=== PATIENT | male | born 1985 | race Caucasian/White ===

== ENCOUNTER 2016-11-10 00:32 | Observation (INO) | payer OTHER, SELFPAY ==
[2016-11-10] MEDS ORDERED: Narcan 0.4 MG/ML IV ONE (00:34)
--- NOTE | 2016-11-10 00:34 | ERPHSYRPT ---
- History of Present Illness Time Seen by Provider: 11/10/16 00:33 Source: EMS Exam Limitations: clinical condition Physician History: REPORTEDLY PT HAS DONE BATH SALTS TONIGHT AND WAS FOUND MINIMALLY RESPONSIVE AT A RESIDENCE THAT WAS NOT HIS. PT WAS GIVEN NARCAN WITH INCREASED RESPONSIVENESS AND BROUGHT TO [facility] VIA AMBULANCE. PT DENIES CHEST PAIN, SHORTNESS OF AIR, ABDOMINAL PAIN. Allergies/Adverse Reactions: No Known Drug Allergies Allergy (Unverified 11/10/16 02:13) unable to verify Home Medications: Unobtainable [Unobtainable] 11/10/16 [History] Hx Tetanus, Diphtheria Vaccination/Date Given: Yes Hx Influenza Vaccination/Date Given: No Hx Pneumococcal Vaccination/Date Given: No - Review of Systems Respiratory: No Dyspnea Cardiac: No Chest Pain Abdominal/Gastrointestinal: No Abdominal Pain Neurological: Other (AMS TONIGHT) All Other Systems: Reviewed and Negative - Past Medical History Pertinent Past Medical History: Yes Neurological History: No Pertinent History ENT History: No Pertinent History Cardiac History: No Pertinent History Respiratory History: No Pertinent History Endocrine Medical History: No Pertinent History Musculoskeletal History: No Pertinent History GI Medical History: Hepatitis History: No Pertinent History Psycho-Social History: No Pertinent History Male Reproductive Disorders: No Pertinent History Other Medical History: pt states he was told he had hepatitis c but it is not active - Past Surgical History Past Surgical History: Yes Neuro Surgical History: No Pertinent History Cardiac: No Pertinent History Respiratory: No Pertinent History Gastrointestinal: Appendectomy Genitourinary: No Pertinent History Musculoskeletal: Orthopedic Surgery Male Surgical History: No Pertinent History Other Surgical History: ABSCESS I AND D on MRSA area of R arm, orthopedic surg to L arm - Social History Smoking Status: Current every day smoker Exposure to second hand smoke: No Drug Use: marijuana, narcotics, other Patient Lives Alone: No - Nursing Vital Signs Nursing Vital Signs: Initial Vital Signs O2 Sat by Pulse Oximetry 96 11/10/16 01:22 Pain Scale Pain Intensity 0 - Physical Exam General Appearance: lethargy (BUT WILL ANSWER QUESTIONS) Eye Exam: PERRL/EOMI Ears, Nose, Throat Exam: dry mucous membranes Neck Exam: normal inspection Respiratory Exam: lungs clear Cardiovascular Exam: normal heart sounds Gastrointestinal/Abdomen Exam: soft, normal bowel sounds Back Exam: normal inspection Extremity Exam: No pedal edema Neurologic Exam: slurred speech, No normal mood/affect (LETHARGIC) Skin Exam: warm, dry, rash (2 mm DIAMETER PAPULES OVER BUTTOCKS), abrasion ( ABRASION OF RIGHT KNEE) SpO2 Interpretation: normal SpO2: 95 Oxygen Delivery: Room Air - Course Nursing assessment & vital signs reviewed: Yes - Radiology Exams Chest X-ray Interpretation: Interpreted by me, No Pneumonia - CT Exams Head CT Interpretation: Tele-radiologist Report (MOTION AND ARTIFACT DEGRADE THE STUDY. VISUALIZED, NO ACUTE INTRACRANIAL PROCESS SEEN.) Ordered Tests: Active Orders 24 hr Category Date Time Status Accucheck STAT Care 11/10/16 00:34 Active Cath for Specimen-Straight STAT Care 11/10/16 00:37 Active EKG-ER Only STAT Care 11/10/16 00:34 Active IV Insertion STAT Care 11/10/16 00:34 Active Pulse Oximetry (ED) STAT Care 11/10/16 00:34 Active CHEST 1 VIEW (PORTABLE) Stat Exams 11/10/16 00:36 Taken HEAD WITHOUT CONTRAST [CT] Stat Exams 11/10/16 00:38 Taken ACETAMINOPHEN Stat Lab 11/10/16 00:59 Completed AMYLASE Stat Lab 11/10/16 00:59 Completed ARTERIAL BLOOD GASES Stat Lab 11/10/16 00:45 Results BLOOD CULTURE Stat Lab 11/10/16 00:50 Ordered CBC W DIFF Stat Lab 11/10/16 00:59 Completed CMP Stat Lab 11/10/16 00:59 Completed CULTURE,URINE Stat Lab 11/10/16 00:59 Received ETHYL ALCOHOL Stat Lab 11/10/16 00:59 Completed LIPASE Stat Lab 11/10/16 00:59 Completed Lactic Acid Stat Lab 11/10/16 00:45 Results MAGNESIUM Stat Lab 11/10/16 00:59 Completed Manual Differential NC Stat Lab 11/10/16 00:59 Completed SALICYLATE Stat Lab 11/10/16 00:59 Completed TROPONIN Q3H Lab 11/10/16 00:59 Completed TROPONIN Q3H Lab 11/10/16 03:45 Ordered TROPONIN Q3H Lab 11/10/16 06:45 Ordered TROPONIN Q3H Lab 11/10/16 09:45 Ordered TROPONIN Q3H Lab 11/10/16 12:45 Ordered UA W/ MICROSCOPIC Stat Lab 11/10/16 00:59 Completed Urine Triage Profile Stat Lab 11/10/16 00:59 Completed Medication Summary Generic Name Dose Route Start Last Admin Trade Name Freq PRN Reason Stop Dose Admin Sodium Chloride 1,000 mls @ 100 mls/hr 11/10/16 00:45 11/10/16 01:03 Sodium Chloride 0.9% 1000 Ml IV 12/10/16 00:44 100 mls/hr .Q10H GREGORIO Administration Potassium Chloride 20 meq in 100 mls @ 50 mls/hr 11/10/16 01:46 11/10/16 02: 34 Potassium Chloride 20 Meq In Water 100ml IV 11/10/16 03:45 50 mls/hr STAT ONE Administration Discontinued Medications Generic Name Dose Route Start Last Admin Trade Name Humaira PRN Reason Stop Dose Admin Sodium Chloride 1,000 mls @ 999 mls/hr 11/10/16 01:12 11/10/16 02:35 Sodium Chloride 0.9% 1000 Ml IV 11/10/16 02:12 999 mls/hr .Q1H1M STA Administration Sodium Chloride 1,000 mls @ 999 mls/hr 11/10/16 01:26 Sodium Chloride 0.9% 1000 Ml IV 11/10/16 02:26 .Q1H1M STA Ceftriaxone Sodium/Dextrose 1 g in 50 mls @ 100 mls/hr 11/10/16 01:29 02:03 Rocephin 1 Gm-D5w 50 Ml Bag IV 11/10/16 01:58 100 mls/hr STAT STA Administration Ceftriaxone Sodium/Dextrose Confirm 11/10/16 02:03 Rocephin 1 Gm-D5w 50 Ml Bag Administered 11/10/16 02:04 Dose 1 g in 50 mls @ ud IV .STK-MED ONE Potassium Chloride Confirm 11/10/16 02:34 Potassium Chloride 20 Meq In Water 100ml Administered 11/10/16 02:35 Dose 100 mls @ ud IV .STK-MED ONE Naloxone HCl 0.4 mg 11/10/16 00:34 11/10/16 01:04 Narcan 0.4 Mg/Ml IV 11/10/16 00:35 0.4 mg STAT ONE Administration Naloxone HCl Confirm 11/10/16 01:02 Narcan 0.4 Mg/Ml Administered 11/10/16 01:03 Dose 0.4 mg .ROUTE .STK-MED ONE Naloxone HCl 2 mg 11/10/16 01:12 11/10/16 01:16 Narcan 1 Mg/Ml IV 11/10/16 01:13 2 mg STAT ONE Administration Naloxone HCl Confirm 11/10/16 01:16 Narcan 1 Mg/Ml Administered 11/10/16 01:17 Dose 2 mg .ROUTE .STK-MED ONE Ondansetron HCl 4 mg 11/10/16 02:31 Zofran 4 Mg/2 Ml Vial IV 11/10/16 02:32 STAT ONE Ondansetron HCl Confirm 11/10/16 02:41 Zofran 4 Mg/2 Ml Vial Administered 11/10/16 02:42 Dose 4 mg .ROUTE .STK-MED ONE Promethazine HCl 12.5 mg 11/10/16 01:39 11/10/16 01:55 Phenergan 25 Mg Inj IV 11/10/16 01:40 12.5 mg STAT ONE Administration Promethazine HCl Confirm 11/10/16 01:55 Phenergan 25 Mg Inj Administered 11/10/16 01:56 Dose 25 mg .ROUTE .STK-MED ONE Lab/Rad Data: Laboratory Result Diagrams 11/10/16 00:59 11/10/16 00:59 Laboratory Results 11/10/16 11/10/16 11/10/16 Range/Units 00:59 00:59 00:59 WBC (4.0-10.5) K/mm3 RBC (4.1-5.6) M/mm3 Hgb (12.5-18.0) gm/dl Hct (42-50) % MCV (78-100) fl MCH (26-32) pg MCHC (32-36) g/dl RDW (11.5-14.0) % Plt Count (150-450) K/mm3 MPV (6-9.5) fl Segmented Neutrophils (36.-66.) % Band Neutrophils (0.0-2.0) % Lymphocytes (Manual) (24-44) % Monocytes (Manual) (0.0-12.0) % Differential Comment Platelet Estimate (NORMAL) Puncture Site pCO2 (35-45) mmHg pO2 (75-100) mmHg Base Excess (-2.0-2.0) O2 Saturation (94-100) g/dF ABG pH (7.35-7.45) ABG HCO3 (22-28) ABG O2 Sat (Measured) (95-100) % Shane Test A-a Gradient a/A Ratio Hemoglobin Carboxyhemoglobin (0.0-6.9) % THgb Methemoglobin (1.4-1.5) % Potassium 3.4 L (3.5-5.1) Temperature C POC O2 Flow Rate % Sodium 133 L (136-145) mEq/L Chloride 100 (98-107) mEq/L Carbon Dioxide 22.8 (21-32) mEq/L Anion Gap 13.9 (5-15) MEQ/L BUN 13 (9-20) mg/dL Creatinine 1.16 (0.55-1.30) mg/dl Estimated GFR > 60 ML/MIN Glucose 96 (70-110) MG/DL Lactic Acid (0.4-2.0) Calcium 9.2 (8.5-10.1) mg/dL Magnesium 1.8 (1.8-2.4) mg/dL Total Bilirubin 0.60 (0.2-1.0) mg/dL AST 31 (15-37) U/L ALT 38 (12-78) U/L Alkaline Phosphatase 108 (46-116) U/L Troponin I < 0.017 (0.000-0.056) ng/ml Serum Total Protein 7.7 (6.4-8.2) gm/dL Albumin 3.0 L (3.4-5.0) g/dL Amylase 20 L (25-115) U/L Lipase 116 (73-393) U/L Ur Collection Type Urine Color (YELLOW) Urine Appearance (CLEAR) Urine pH (5-6) Ur Specific [place] (1.005-1.025) Urine Protein (Negative) Urine Ketones (NEGATIVE) Urine Blood (0-5) Bruce/ul Urine Nitrite (NEGATIVE) Urine Bilirubin (NEGATIVE) Urine Urobilinogen (0-1) mg/dL Ur Leukocyte Esterase (NEGATIVE) Urine Microscopic RBC (0-2) /HPF Urine Microscopic WBC (0-5) /HPF Ur Epithelial Cells (FEW) /HPF Amorphous Crystals (NEGATIVE) /HPF Urine Bacteria (NEGATIVE) /HPF Urine Mucus (NEGATIVE) /HPF Urine Glucose (NEGATIVE) mg/dL Salicylates 4.2 (2.8-20.0) mg/dl Urine Opiates Level (NEGATIVE) Ur Methadone (NEGATIVE) Acetaminophen < 2.0 L (10-30) ug/ml Urine Barbiturates (NEGATIVE) Ur Phencyclidine (PCP) (NEGATIVE) Urine Amphetamine (NEGATIVE) U Benzodiazepine Level (NEGATIVE) Urine Cocaine (NEGATIVE) Urine Marijuana (THC) (NEGATIVE) Ethyl Alcohol < 0.010 (0.00-0.01) % Specimen Received 11/10/16 11/10/16 11/10/16 Range/Units 00:59 00:59 00:59 WBC 14.3 H (4.0-10.5) K/mm3 RBC 4.56 (4.1-5.6) M/mm3 Hgb 12.0 L (12.5-18.0) gm/dl Hct 35.9 L (42-50) % MCV 78.7 (78-100) fl MCH 26.3 (26-32) pg MCHC 33.4 (32-36) g/dl RDW 15.4 H (11.5-14.0) % Plt Count 197 (150-450) K/mm3 MPV 10.3 H (6-9.5) fl Segmented Neutrophils 82 H (36.-66.) % Band Neutrophils 4 H (0.0-2.0) % Lymphocytes (Manual) 12 L (24-44) % Monocytes (Manual) 2 (0.0-12.0) % Differential Comment NORMAL Platelet Estimate NORMAL (NORMAL) Puncture Site pCO2 (35-45) mmHg pO2 (75-100) mmHg Base Excess (-2.0-2.0) O2 Saturation (94-100) g/dF ABG pH (7.35-7.45) ABG HCO3 (22-28) ABG O2 Sat (Measured) (95-100) % Shane Test A-a Gradient a/A Ratio Hemoglobin Carboxyhemoglobin (0.0-6.9) % THgb Methemoglobin (1.4-1.5) % Potassium (3.5-5.1) Temperature C POC O2 Flow Rate % Sodium (136-145) mEq/L Chloride (98-107) mEq/L Carbon Dioxide (21-32) mEq/L Anion Gap (5-15) MEQ/L BUN (9-20) mg/dL Creatinine (0.55-1.30) mg/dl Estimated GFR ML/MIN Glucose (70-110) MG/DL Lactic Acid (0.4-2.0) Calcium (8.5-10.1) mg/dL Magnesium (1.8-2.4) mg/dL Total Bilirubin (0.2-1.0) mg/dL AST (15-37) U/L ALT (12-78) U/L Alkaline Phosphatase (46-116) U/L Troponin I (0.000-0.056) ng/ml Serum Total Protein (6.4-8.2) gm/dL Albumin (3.4-5.0) g/dL Amylase (25-115) U/L Lipase (73-393) U/L Ur Collection Type CATH Urine Color DARK YELLOW (YELLOW) Urine Appearance CLOUDY (CLEAR) Urine pH 5.0 (5-6) Ur Specific [place] 1.030 (1.005-1.025) Urine Protein 30 (Negative) Urine Ketones NEGATIVE (NEGATIVE) Urine Blood 250 (0-5) Bruce/ul Urine Nitrite NEGATIVE (NEGATIVE) Urine Bilirubin NEGATIVE (NEGATIVE) Urine Urobilinogen NORMAL (0-1) mg/dL Ur Leukocyte Esterase NEGATIVE (NEGATIVE) Urine Microscopic RBC 15-25 (0-2) /HPF Urine Microscopic WBC 2-5 (0-5) /HPF Ur Epithelial Cells MODERATE (FEW) /HPF Amorphous Crystals MODERATE (NEGATIVE) /HPF Urine Bacteria MODERATE (NEGATIVE) /HPF Urine Mucus MODERATE (NEGATIVE) /HPF Urine Glucose NEGATIVE (NEGATIVE) mg/dL Salicylates (2.8-20.0) mg/dl Urine Opiates Level POS. (NEGATIVE) Ur Methadone NEG. (NEGATIVE) Acetaminophen (10-30) ug/ml Urine Barbiturates NEG. (NEGATIVE) Ur Phencyclidine (PCP) NEG. (NEGATIVE) Urine Amphetamine POS. (NEGATIVE) U Benzodiazepine Level NEG. (NEGATIVE) Urine Cocaine NEG. (NEGATIVE) Urine Marijuana (THC) POS. (NEGATIVE) Ethyl Alcohol (0.00-0.01) % Specimen Received 11/10/16 0100 11/10/16 Range/Units 00:45 WBC (4.0-10.5) K/mm3 RBC (4.1-5.6) M/mm3 Hgb (12.5-18.0) gm/dl Hct (42-50) % MCV (78-100) fl MCH (26-32) pg MCHC (32-36) g/dl RDW (11.5-14.0) % Plt Count (150-450) K/mm3 MPV (6-9.5) fl Segmented Neutrophils (36.-66.) % Band Neutrophils (0.0-2.0) % Lymphocytes (Manual) (24-44) % Monocytes (Manual) (0.0-12.0) % Differential Comment Platelet Estimate (NORMAL) Puncture Site RIGHT RADIAL pCO2 30 L (35-45) mmHg pO2 70 L (75-100) mmHg Base Excess 0.3 (-2.0-2.0) O2 Saturation 91.0 L (94-100) g/dF ABG pH 7.49 H (7.35-7.45) ABG HCO3 22.9 (22-28) ABG O2 Sat (Measured) 96.9 (95-100) % Shane Test YES A-a Gradient 42 a/A Ratio 0.63 Hemoglobin 12.4 Carboxyhemoglobin 5.1 (0.0-6.9) % THgb Methemoglobin 1.0 L (1.4-1.5) % Potassium 3.5 (3.5-5.1) Temperature 37.0 C POC O2 Flow Rate 21 % Sodium (136-145) mEq/L Chloride (98-107) mEq/L Carbon Dioxide (21-32) mEq/L Anion Gap (5-15) MEQ/L BUN (9-20) mg/dL Creatinine (0.55-1.30) mg/dl Estimated GFR ML/MIN Glucose (70-110) MG/DL Lactic Acid 3.3 H (0.4-2.0) Calcium (8.5-10.1) mg/dL Magnesium (1.8-2.4) mg/dL Total Bilirubin (0.2-1.0) mg/dL AST (15-37) U/L ALT (12-78) U/L Alkaline Phosphatase (46-116) U/L Troponin I (0.000-0.056) ng/ml Serum Total Protein (6.4-8.2) gm/dL Albumin (3.4-5.0) g/dL Amylase (25-115) U/L Lipase (73-393) U/L Ur Collection Type Urine Color (YELLOW) Urine Appearance (CLEAR) Urine pH (5-6) Ur Specific [place] (1.005-1.025) Urine Protein (Negative) Urine Ketones (NEGATIVE) Urine Blood (0-5) Bruce/ul Urine Nitrite (NEGATIVE) Urine Bilirubin (NEGATIVE) Urine Urobilinogen (0-1) mg/dL Ur Leukocyte Esterase (NEGATIVE) Urine Microscopic RBC (0-2) /HPF Urine Microscopic WBC (0-5) /HPF Ur Epithelial Cells (FEW) /HPF Amorphous Crystals (NEGATIVE) /HPF Urine Bacteria (NEGATIVE) /HPF Urine Mucus (NEGATIVE) /HPF Urine Glucose (NEGATIVE) mg/dL Salicylates (2.8-20.0) mg/dl Urine Opiates Level (NEGATIVE) Ur Methadone (NEGATIVE) Acetaminophen (10-30) ug/ml Urine Barbiturates (NEGATIVE) Ur Phencyclidine (PCP) (NEGATIVE) Urine Amphetamine (NEGATIVE) U Benzodiazepine Level (NEGATIVE) Urine Cocaine (NEGATIVE) Urine Marijuana (THC) (NEGATIVE) Ethyl Alcohol (0.00-0.01) % Specimen Received - Progress Discussed with : Betty (OBS - [id number]) - Departure Time of Disposition: 02:52 Departure Disposition: Observation Clinical Impression: ALTERED MENTAL STATUS, ELEVATED LACTIC ACID , AMPHETAMINE, OPIATE & MARIJUANA USE, UTI, HYPOKALEMIA, HYPONATREMIA Condition: Stable Critical Care Time: No Referrals: DEMETRICE FRANCISCO [Primary Care Provider] -
[2016-11-10] MEDS ORDERED: Sodium Chloride 0.9% 1000 ML 1,000 ML IV SCH ×2 (00:45→03:00)
[2016-11-10] MEDS ORDERED: Narcan 0.4 MG/ML ONE (01:02)
[2016-11-10 01:03] LABS: Mean Cell Volume 78.7 fl (78-100); Mean Corpuscular Hemoglobin 26.3 pg (26-32); Mean Platelet Volume 10.3 fl (6-9.5); Platelet Count 197 K/mm3 (150-450); Red Blood Count 4.56 M/mm3 (4.1-5.6); Red Cell Distribution Width 15.4 % (11.5-14.0); White Blood Count 14.3 K/mm3 (4.0-10.5)
[2016-11-10 01:05] LABS: A-aADO2 42; ARTERIAL BLD GAS O2 SATURATION 96.9 % (95-100); ARTERIAL BLOOD GAS BASE EXCESS 0.3 (-2.0-2.0); ARTERIAL BLOOD GAS FIO2 21 %; ARTERIAL BLOOD GAS PO2 70 mmHg (75-100); ARTERIAL BLOOD GAS pH 7.49 (7.35-7.45); Lactic Acid 3.3 (0.4-2.0)
[2016-11-10 01:06] LABS: ALLEN TEST OK? YES
[2016-11-10] MEDS ORDERED: NARCAN 1 MG/ML IV ONE (01:12)
[2016-11-10] MEDS ORDERED: Sodium Chloride 0.9% 1000 ML 1,000 ML IV STA ×2 (01:12→01:26)
[2016-11-10 01:15] LABS: Bilirubin NEGATIVE (NEGATIVE); Blood 250 Ery/ul (0-5); COMPLETE URINE MICROSCOPIC? YES; Collection Type CATH; Glucose NEGATIVE (NEGATIVE); Leukocyte Esterase NEGATIVE (NEGATIVE)
[2016-11-10 01:16] LABS: ADD URINE CULTURE? YES (NO); Bacteria MODERATE /HPF (NEGATIVE); Epithelial Cells MODERATE /HPF (FEW); Mucus MODERATE /HPF (NEGATIVE)
[2016-11-10] MEDS ORDERED: NARCAN 1 MG/ML ONE (01:16)
[2016-11-10 01:23] LABS: MAGNESIUM 1.8 mg/dL (1.8-2.4)
[2016-11-10] MEDS ORDERED: ROCEPHIN 1 Gm-D5w 50 ml Bag** 1 G/50 ML IVPB IV STA (01:29)
[2016-11-10 01:30] LABS: ALKALINE PHOSPHATASE 108 U/L (46-116); ANION GAP 13.9 MEQ/L (5-15); BLOOD UREA NITROGEN 13 mg/dL (9-20); CHLORIDE 100 mEq/L (98-107); Carbon Dioxide 22.8 mEq/L (21-32); Glucose 96 MG/DL (70-110); Potassium 3.4 mEq/L (3.5-5.1); SGOT/AST 31 U/L (15-37); SGPT/ALT 38 U/L (12-78); SODIUM 133 mEq/L (136-145); Total Protein 7.7 gm/dL (6.4-8.2)
[2016-11-10 01:31] LABS: ACETAMINOPHEN < 2.0 ug/ml (10-30); ETHYL ALCOHOL < 0.010 % (0.00-0.01)
[2016-11-10] MEDS ORDERED: Phenergan 25 MG INJ IV ONE (01:39)
[2016-11-10] MEDS ORDERED: POTASSIUM CHLORIDE 20 mEq IN WATER 100ML 20 MEQ/100 ML BAG IV ONE ×2 (01:46→02:53)
[2016-11-10] MEDS ORDERED: Phenergan 25 MG INJ ONE (01:55)
[2016-11-10 02:00] LABS: BAND 4 % (0.0-2.0); Platelet Estimate NORMAL (NORMAL); Total Cells Counted 100
[2016-11-10] MEDS ORDERED: ROCEPHIN 1 Gm-D5w 50 ml Bag** 1 G/50 ML IVPB IV ONE (02:03)
[2016-11-10] MEDS ORDERED: Zofran 4 MG/2 ML VIAL IV ONE (02:31)
[2016-11-10] MEDS ORDERED: POTASSIUM CHLORIDE 20 mEq IN WATER 100ML 100 ML IV ONE (02:34)
[2016-11-10] MEDS ORDERED: Zofran 4 MG/2 ML VIAL ONE (02:41)
[2016-11-10] MEDS ORDERED: Zofran 4 MG/2 ML VIAL IV PRN (02:53)
[2016-11-10] MEDS ORDERED: Phenergan 25 MG INJ IV PRN (02:53)
[2016-11-10 06:43] LABS: ALBUMIN 2.7 g/dL (3.4-5.0); ALKALINE PHOSPHATASE 94 U/L (46-116); ANION GAP 15.8 MEQ/L (5-15); BLOOD UREA NITROGEN 12 mg/dL (9-20); CHLORIDE 106 mEq/L (98-107); Carbon Dioxide 22.6 mEq/L (21-32); Glucose 102 MG/DL (70-110); Mean Cell Volume 79.8 fl (78-100); Platelet Count 180 K/mm3 (150-450); Potassium 4.5 mEq/L (3.5-5.1); Red Cell Distribution Width 15.6 % (11.5-14.0); SGOT/AST 35 U/L (15-37); SGPT/ALT 31 U/L (12-78); SODIUM 140 mEq/L (136-145); White Blood Count 9.4 K/mm3 (4.0-10.5)
--- NOTE | 2016-11-10 08:59 | XRAY ---
Indication: Acute mental status change. Comparison: None Portable chest slightly underinflated and clear. Heart and mediastinal structures within normal limits. Bony thorax intact. Impression: Nonacute underinflated chest.
--- NOTE | 2016-11-10 09:01 | XRAY ---
Indication: Acute mental status change. Multiple contiguous axial images obtained through the head without contrast. Comparison: None Study is degraded by motion artifact even with repeat CT. No gross acute intracranial hemorrhage, abnormal extra-axial fluid collection, or mass effect. Fourth ventricle is midline without hydrocephalus. Olson-white matter differentiation preserved. Bony calvarium grossly intact. Mild mucosal thickening of both ethmoid sinuses. Mastoid air cells clear. Impression: Motion artifact. No gross acute intracranial abnormalities. Comment: Preliminary interpretation was made by [facility]. No discrepancy. CT DI 60.26
--- NOTE | 2016-11-10 09:05 | HP ---
CHIEF COMPLAINT: Polysubstance abuse, lethargy. HISTORY OF PRESENT ILLNESS: The patient is a 31 year-old white male patient who was apparently found down at a residence that was not his. He was given Narcan with somewhat increase in response with this. The patient did admit afterwards to have taken bath salts. He was also positive on his urine drug screen for multiple substances including amphetamines and THC. He has been admitted to the hospital ICU for monitoring for possible deterioration in his status. PAST MEDICAL/SURGICAL HISTORY: Otherwise unobtainable as he is very lethargic at this point. MEDICATIONS: He has according to history on no routine medications. ALLERGIES: NKDA. PHYSICAL EXAMINATION: The patient is somewhat obtunded although he will awaken to stimuli, mumble and then go back to sleep. HEENT: Appears to be normocephalic and atraumatic. Pupils appears to be equal round and reactive to light. Extraocular movements appear to be intact. Oropharynx is dry. NECK: Supple without lymphadenopathy, thyromegaly or JVD. CHEST: Clear to auscultation. HEART: Regular rate and rhythm. ABDOMEN: Soft, nontender, nondistended without hepatosplenomegaly or masses. EXTREMITIES: Without clubbing, cyanosis or edema. NEUROLOGIC: No focal deficits are apparent on neurologic evaluation. LAB DATA AND TESTS: The patient's metabolic panel showed low potassium initially and he was given a K-rider and his most recent potassium was up to 4.5. His sugar was noted to be 102 fasting. BUN 12, creatinine 0.86. Liver enzymes were normal. ABG showed pH of 7.49, pCO2 of 30, pO2 of 70. His acetaminophen was less than 2, salicylate 4.2. ETOH was negative. Troponin less than 0.017. Magnesium 1.8, amylase 20, lipase 116. UA showed specific gravity 1.030 with 2-5 white blood cell and 16-25 red blood cells. White blood cell count 14,300, hemoglobin 12.0, PLT count 197,000. Urine drug screen was positive for amphetamine, opiates and THC. ASSESSMENT: A patient with polydrug abuse currently obtunded. He has been admitted to the hospital in the ICU for observation. When he awakens enough we will obtain a [facility] consultation for possibly patient placement once he stabilizes medically.
--- NOTE | 2016-11-10 09:07 | XRAY ---
Indication: Possible aspiration. Comparison: Taken earlier today. Portable chest demonstrates new right base infiltrate/atelectasis. Remaining heart and lungs normal.
[2016-11-10] MEDS ORDERED: ROCEPHIN 1 Gm-D5w 50 ml Bag** 1 G/50 ML IVPB IV SCH ×2 (11:16→22:00)
[2016-11-10] MEDS ORDERED: Zithromax 500 MG/ 250 ML NaCl Premix 500 MG/250 ML IVPB IV SCH (12:00)
[2016-11-10 12:04] LABS: BAND 1 % (0.0-2.0); Total Cells Counted 100
[2016-11-10 12:05] LABS: Platelet Estimate NORMAL (NORMAL)
[2016-11-10 13:27] VITALS: BP 109/74; PULSE 82; O2SAT 96
== END 2016-11-10 12:45 | disposition left against medical advice (07) ==
LOC: ED 00:32 → ICU 04:09
PROVIDERS: ADMIT Family Medicine; ATTEND Family Medicine
DX: F19.10 Other psychoactive substance abuse, uncomplicated (principal); Z72.0 Tobacco use
CPT/HCPCS: 36000; 36415; 36600; 70450; 71010; 80053; 80307; 81000; 82150; 82375; 82803; 82962; 83605; 83690; 83735; 84132; 84484; 85025; 87040; 87086; 93005; 96360; 96365; 96366; 96374; 99284; G0378; G0481; J0456; J0696; J2310; J2405; J2550; J3480; P9612

== ENCOUNTER 2016-11-30 16:40 | Emergency (ER) | payer OTHER ==
[2016-11-30] MEDS ORDERED: Adacel Vial IM ONE ×2 (17:00→17:20)
[2016-11-30] MEDS ORDERED: BENADRYL 50 MG/ML IV ONE ×2 (17:00→18:52)
[2016-11-30] MEDS ORDERED: MORPHINE SULFATE 10 MG/ML IV ONE ×2 (17:00→18:52)
[2016-11-30] MEDS ORDERED: Sodium Chloride 0.9% 1000 ML 1,000 ML IV STA (17:00)
[2016-11-30] MEDS ORDERED: Vancomycin 1GM/ Ns 250ML*** 250 ML IV ONE ×2 (17:02→17:20)
--- NOTE | 2016-11-30 17:11 | ERPHSYRPT ---
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 He noted left forearm red and swollen since yesterday. Much worse today with fever and pain. No drng. Unsure last tetanus vaccine. Pain is severe. The arm is red. Denies FB or injury. Timing/Duration: yesterday Quality: painful Severity: severe Allergies/Adverse Reactions: No Known Drug Allergies Allergy (Unverified 11/10/16 02:13) unable to verify Home Medications: No Reportable Medications [No Reported Medications] 11/30/16 [History] Hx Tetanus, Diphtheria Vaccination/Date Given: No Hx Influenza Vaccination/Date Given: No Hx Pneumococcal Vaccination/Date Given: No Immunizations Up to Date: Yes - Review of Systems Constitutional: Fever, Chills Eyes: No Symptoms Ears, Nose, & Throat: No Symptoms Respiratory: No Cough, No Dyspnea Cardiac: No Chest Pain Abdominal/Gastrointestinal: No Abdominal Pain, No Nausea, No Vomiting Musculoskeletal: No Back Pain, No Neck Pain Skin: Skin Lesions (left forearm) Neurological: No Focal Weakness, No Headache, No Parasthesia All Other Systems: Reviewed and Negative - Past Medical History Pertinent Past Medical History: No Neurological History: No Pertinent History ENT History: No Pertinent History Cardiac History: No Pertinent History Respiratory History: No Pertinent History Endocrine Medical History: No Pertinent History Musculoskeletal History: No Pertinent History GI Medical History: Hepatitis History: No Pertinent History Psycho-Social History: No Pertinent History Male Reproductive Disorders: No Pertinent History Other Medical History: pt states he was told he had hepatitis c but it is not active - Past Surgical History Past Surgical History: No Neuro Surgical History: No Pertinent History Cardiac: No Pertinent History Respiratory: No Pertinent History Gastrointestinal: Appendectomy Genitourinary: No Pertinent History Musculoskeletal: Orthopedic Surgery Male Surgical History: No Pertinent History Other Surgical History: ABSCESS I AND D on MRSA area of R arm, orthopedic surg to L arm - Social History Smoking Status: Current every day smoker Exposure to second hand smoke: Yes Drug Use: marijuana, narcotics Patient Lives Alone: No (residential inmate) - Nursing Vital Signs Nursing Vital Signs: Initial Vital Signs Temperature 97.9 F 11/30/16 16:45 Pulse Rate 72 11/30/16 16:45 Respiratory Rate 16 11/30/16 16:45 Blood Pressure 137/92 11/30/16 16:45 O2 Sat by Pulse Oximetry 100 11/30/16 16:45 Pain Scale Pain Intensity 9 - Physical Exam General Appearance: alert Eye Exam: PERRL/EOMI Ears, Nose, Throat Exam: moist mucous membranes Neck Exam: normal inspection, supple Respiratory Exam: No respiratory distress Cardiovascular Exam: regular rate/rhythm Gastrointestinal/Abdomen Exam: soft, No tenderness, No distention Male Genitalia Exam: normal genitalia Back Exam: normal inspection Extremity Exam: other (left forearm has swelling, erythema, tenderness) Neurologic Exam: alert, oriented x 3, cooperative, sensation nml, No motor deficits Skin Exam: warm, dry SpO2 Interpretation: normal SpO2: 100 Oxygen Delivery: Room Air Procedures - Incision and Drainage Site: left forearm Anesthesia: sodium bicarb (with epi) cc's of anesthesia: 5 Blade Size: scalpel I & D Procedure: betadine prep, sterile drapes applied, sterile dressing applied , culture obtained, irrigated with normal saline, gauze wick placed Results: large amount pus Progress: Tolerated well. Premedicated with benadryl and morphine. He has had IVPB Vancomycin. Hand neurovascular intact post procedure. - Course Nursing assessment & vital signs reviewed: Yes Ordered Tests: Active Orders 24 hr Category Date Time Status IV Insertion STAT Care 11/30/16 17:00 Active Wound Care STAT Care 11/30/16 17:00 Active FOREARM Stat Exams 11/30/16 16:59 Taken BMP Stat Lab 11/30/16 17:15 Completed CBC W DIFF Stat Lab 11/30/16 17:15 Completed CULTURE,WOUND Stat Lab 11/30/16 18:33 Ordered Lactic Acid Stat Lab 11/30/16 17:25 Completed Manual Differential NC Stat Lab 11/30/16 17:15 Completed Medication Summary Discontinued Medications Generic Name Dose Route Start Last Admin Trade Name Freq PRN Reason Stop Dose Admin Diphenhydramine HCl 25 mg 11/30/16 17:00 11/30/16 17:30 Benadryl 50 Mg/Ml IV 11/30/16 17:01 25 mg STAT ONE Administration Diphenhydramine HCl Confirm 11/30/16 17:19 Benadryl 50 Mg/Ml Administered 11/30/16 17:20 Dose 50 mg .ROUTE .STK-MED ONE Diphenhydramine HCl 25 mg 11/30/16 18:52 11/30/16 18:57 Benadryl 50 Mg/Ml IV 11/30/16 18:53 25 mg STAT ONE Administration Diphenhydramine HCl Confirm 11/30/16 18:56 Benadryl 50 Mg/Ml Administered 11/30/16 18:57 Dose 50 mg .ROUTE .STK-MED ONE Diphtheria/Tetanus/Acell Pertussis 0.5 ml 11/30/16 17:00 11/30/16 17:32 Adacel Vial IM 11/30/16 17:01 0.5 ml .ONCE ONE Administration Diphtheria/Tetanus/Acell Pertussis Confirm 11/30/16 17:20 Adacel Vial Administered 11/30/16 17:21 Dose 0.5 ml IM .STK-MED ONE Sodium Chloride 1,000 mls @ 999 mls/hr 11/30/16 17:00 11/30/16 17:30 Sodium Chloride 0.9% 1000 Ml IV 11/30/16 18:00 999 mls/hr .Q1H1M STA Administration Vancomycin HCl 250 mls @ 167 mls/hr 11/30/16 17:02 11/30/16 17:30 Vancomycin 1gm/ Ns 250ml IV 11/30/16 18:31 167 mls/hr STAT ONE Administration Sodium Chloride Confirm 11/30/16 17:20 Sodium Chloride 0.9% 1000 Ml Administered 11/30/16 17:21 Dose 1,000 mls @ ud .ROUTE .STK-MED ONE Vancomycin HCl Confirm 11/30/16 17:20 Vancomycin 1gm/ Ns 250ml Administered 11/30/16 17:21 Dose 250 mls @ ud IV .STK-MED ONE Morphine Sulfate 6 mg 11/30/16 17:00 11/30/16 17:30 Morphine Sulfate 10 Mg/Ml IV 11/30/16 17:01 6 mg STAT ONE Administration Morphine Sulfate Confirm 11/30/16 17:20 Morphine Sulfate 10 Mg/Ml Administered 11/30/16 17:21 Dose 10 mg .ROUTE .STK-MED ONE Morphine Sulfate 6 mg 11/30/16 18:52 11/30/16 18:57 Morphine Sulfate 10 Mg/Ml IV 11/30/16 18:53 6 mg STAT ONE Administration Morphine Sulfate Confirm 11/30/16 18:57 Morphine Sulfate 10 Mg/Ml Administered 11/30/16 18:58 Dose 10 mg .ROUTE .STK-MED ONE Lab/Rad Data: Laboratory Result Diagrams 11/30/16 17:15 11/30/16 17:15 Laboratory Results 11/30/16 11/30/16 11/30/16 Range/Units 17:25 17:15 17:15 WBC 9.4 (4.0-10.5) K/mm3 RBC 4.99 (4.1-5.6) M/mm3 Hgb 13.2 (12.5-18.0) gm/dl Hct 40.4 L (42-50) % MCV 81.0 (78-100) fl MCH 26.5 (26-32) pg MCHC 32.7 (32-36) g/dl RDW 16.1 H (11.5-14.0) % Plt Count 202 (150-450) K/mm3 MPV 10.5 H (6-9.5) fl Sodium 135 L (136-145) mEq/L Potassium 4.0 (3.5-5.1) mEq/L Chloride 101 (98-107) mEq/L Carbon Dioxide 24.9 (21-32) mEq/L Anion Gap 13.1 (5-15) MEQ/L BUN 8 L (9-20) mg/dL Creatinine 0.68 (0.55-1.30) mg/dl Estimated GFR > 60 ML/MIN Glucose 115 H (70-110) MG/DL Lactic Acid 1.3 (0.4-2.0) Calcium 9.0 (8.5-10.1) mg/dL - Progress Progress Note: 11/30/16 17:10 Advised I&D. Pt had this before. High risk for MRSA. Will get xray to rule out FB. Will start vanco. - Departure Time of Disposition: 19:23 Departure Disposition: [facility] Clinical Impression: Abscess of left forearm Condition: Stable Critical Care Time: No Instructions: Methicillin-Resistant Staph Infection (MRSA), Incision and Drainage of a Skin Abscess Additional Instructions: Elevate arm. Return to [facility] at 6AM tomorrow AM for IVPB Vancomycin and wound check. To see residential doctor tomorrow. Ibuprofen 600mg every 6 hours for pain.
[2016-11-30] MEDS ORDERED: BENADRYL 50 MG/ML ONE ×2 (17:19→18:56)
[2016-11-30] MEDS ORDERED: MORPHINE SULFATE 10 MG/ML ONE ×2 (17:20→18:57)
[2016-11-30] MEDS ORDERED: Sodium Chloride 0.9% 1000 ML 1,000 ML ONE (17:20)
[2016-11-30 17:22] LABS: Mean Corpuscular Hemoglobin 26.5 pg (26-32); Mean Platelet Volume 10.5 fl (6-9.5); Platelet Count 202 K/mm3 (150-450); Red Blood Count 4.99 M/mm3 (4.1-5.6); Red Cell Distribution Width 16.1 % (11.5-14.0); White Blood Count 9.4 K/mm3 (4.0-10.5)
[2016-11-30 17:43] LABS: ANION GAP 13.1 MEQ/L (5-15); BLOOD UREA NITROGEN 8 mg/dL (9-20); CHLORIDE 101 mEq/L (98-107); Carbon Dioxide 24.9 mEq/L (21-32); Glucose 115 MG/DL (70-110); SODIUM 135 mEq/L (136-145)
[2016-11-30 19:31] LABS: BAND 1 % (0.0-2.0); Eosinophil 1 % (0.00-3.0); Total Cells Counted 100
[2016-11-30 19:32] LABS: Platelet Estimate NORMAL (NORMAL)
[2016-11-30 20:26] VITALS: BP 141/93; PULSE 82; O2SAT 98
--- NOTE | 2016-12-01 09:07 | XRAY ---
Indication: Abscess. Comparison: None 2 views of the left forearm demonstrates mid to proximal diffuse soft tissue swelling with focal posterior soft tissue bulge. No other bony, articular, or soft tissue abnormalities.
== END 2016-11-30 20:29 | disposition home or self-care (01) ==
LOC: ED 16:40
PROC: 0H9EXZZ Drainage of Left Lower Arm Skin, External Approach (ICD-10-PCS; principal; 2016-11-30)
DX: L02.414 Cutaneous abscess of left upper limb (principal); R50.9 Fever, unspecified
CPT/HCPCS: 10060; 36000; 36415; 73090; 80048; 83605; 85025; 87070; 90471; 90715; 96360; 96365; 96367; 96374; 96375; 99284; J1200; J2270; J3370

== ENCOUNTER 2020-09-01 21:31 | Observation (INO) | payer OTHER ==
[2020-09-01] MEDS ORDERED: Sodium Chloride 0.9% 1000 ML 1,000 ML IV STA (22:12)
[2020-09-01] MEDS ORDERED: Zofran 4 MG/2 ML VIAL IV ONE (22:12)
--- NOTE | 2020-09-01 22:19 | ERPHSYRPT ---
- History of Present Illness Time Seen by Provider: 09/01/20 22:12 Source: patient, EMS Exam Limitations: intoxication Physician History: 35 years old male with history of drug abuse is brought in the ER by EMS with chief complaint of multiple seizures episode prior to arrival. On EMS arrival patient had a seizure, and was given Versed IM and patient is postictal on p resentation. He is arousable to verbal command but confused. Patient denies using IV drugs but does admit smoking marijuana. In all 4 extremities. Timing/Duration: today, resolved prior to arrival Severity: moderate Baseline/Normal Cognition: alert oriented x 3 Current Cognition: alert but confused Associated Symptoms: seizures Allergies/Adverse Reactions: No Known Drug Allergies Allergy (Verified 12/01/16 07:07) unable to verify Home Medications: No Reportable Medications [No Reported Medications] 11/30/16 [History] Hx Tetanus, Diphtheria Vaccination/Date Given: No Hx Influenza Vaccination/Date Given: No Hx Pneumococcal Vaccination/Date Given: No - Review of Systems All Other Systems: Unable due to condition - Past Medical History Pertinent Past Medical History: Yes Neurological History: No Pertinent History ENT History: No Pertinent History Cardiac History: No Pertinent History Respiratory History: No Pertinent History Endocrine Medical History: No Pertinent History Musculoskeletal History: No Pertinent History GI Medical History: Hepatitis History: No Pertinent History Psycho-Social History: No Pertinent History Male Reproductive Disorders: No Pertinent History Other Medical History: pt states he was told he had hepatitis c but it is not active - Past Surgical History Past Surgical History: Yes Neuro Surgical History: No Pertinent History Cardiac: No Pertinent History Respiratory: No Pertinent History Gastrointestinal: Appendectomy Genitourinary: No Pertinent History Musculoskeletal: Orthopedic Surgery Male Surgical History: No Pertinent History Other Surgical History: ABSCESS I AND 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 2015 L wrist I&D. - Social History Smoking Status: Current every day smoker Exposure to second hand smoke: Yes Drug Use: marijuana, narcotics Patient Lives Alone: No (half-way inmate) - Nursing Vital Signs Nursing Vital Signs: Initial Vital Signs Pulse Rate 135 H 09/01/20 21:33 Respiratory Rate 28 H 09/01/20 21:33 Blood Pressure 110/61 09/01/20 21:33 O2 Sat by Pulse Oximetry 99 09/01/20 21:33 Pain Scale Pain Intensity 8 - [place] Coma Scale Best Eye Response ([place]way): (4) open spontaneously Best Verbal Response ([place]): (4) confused conversation Best Motor Response (Emilia): (5) localizes to pain Emilia Total: 13 - Physical Exam General Appearance: no apparent distress, alert Eye Exam: bilateral eye: normal inspection, PERRL, EOMI Ears, Nose, Throat Exam: normal ENT inspection, TMs normal Neck Exam: normal inspection, non-tender, supple, full range of motion Respiratory: lungs clear, airway intact, No chest tenderness Cardiovascular: normal heart sounds, tachycardia Gastrointestinal: soft, normal bowel sounds Male Genitalia: normal genitalia, No testicular tenderness Back Exam: normal inspection Extremity Exam: inflammation Mental Status: alert, agitated, uncooperative, 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: normal hearing, PERRL Motor/Sensory: no motor deficit, negative Babinski's sign DTR: bicep (R): 2+, bicep (L): 2+, knee (R): 2+, knee (L): 2+ Skin Exam: normal color, rash, other (Multiple track haynes on the hands, multiple abrasions scabs and multiple people bruises on the lower extremities.) SpO2 Interpretation: normal SpO2: 99 O2 Delivery: Non-rebreather Procedures - Central Line Time Of Procedure: 22:11 Timeout: Performed Central Line Lumen: triple Lumen Size: 7 Monegasque Central Line Procedure: chlorahexadine prep Central Line Postion: femoral (R) Anesthesia: 1% Lidocaine cc's of anesthesia: 5 Ultrasound Guided Placement: Yes Complications: none Central Line Post Position: sutured, good blood return - Course EKG Interpreted by Me: RATE ([id number]), Sinus Tach, Left [place] Deviation, NORMAL INTERVALS, Non-specific ST Changes Ordered Tests: Active Orders 24 hr Category Date Time Status Adjunct Psychology Professor STAT Care 09/01/20 22:13 Active EKG-ER Only STAT Care 09/01/20 22:12 Active IV Insertion STAT Care 09/01/20 22:12 Active NPO (ED) STAT Care 09/01/20 22:12 Active Oxygen-ED Only Nasal Cannula 3 lpm Care 09/01/20 22:12 Active POCT Glucose Check STAT Care 09/01/20 22:12 Active CHEST 1 VIEW (PORTABLE) Stat Exams 09/01/20 22:45 Taken HEAD WITHOUT CONTRAST [CT] Stat Exams 09/01/20 22:13 Taken ACETAMINOPHEN Stat Lab 09/01/20 22:28 Completed ARTERIAL BLOOD GASES Stat Lab 09/01/20 22:25 Completed BLOOD CULTURE Stat Lab 09/01/20 22:30 Received CBC W DIFF Stat Lab 09/01/20 22:28 Completed CMP Stat Lab 09/01/20 22:28 Completed ETHYL ALCOHOL Stat Lab 09/01/20 22:28 Completed Lactic Acid Stat Lab 09/01/20 22:25 Completed MAG [MAGNESIUM] Stat Lab 09/01/20 22:28 Completed PROTIME WITH INR Stat Lab 09/01/20 22:28 Completed SALICYLATE Stat Lab 09/01/20 22:28 Completed UA W/RFX UR CULTURE Stat Lab 09/01/20 22:31 Completed Urine Triage Profile Stat Lab 09/01/20 22:31 Completed Medication Summary Discontinued Medications Generic Name Dose Route Start Last Admin Trade Name Freq PRN Reason Stop Dose Admin Sodium Chloride 1,000 mls @ 999 mls/hr 09/01/20 22:12 09/01/20 22:50 Sodium Chloride 0.9% 1000 Ml IV 09/01/20 23:12 999 mls/hr .Q1H1M STA Administration Levetiracetam 1,000 mg/ 110 mls @ 400 mls/hr 09/01/20 22:12 09/01/20 22:50 Dextrose IV 09/01/20 22:28 400 mls/hr STAT ONE Administration Sodium Chloride Confirm 09/01/20 22:30 Sodium Chloride 0.9% 1000 Ml Administered 09/01/20 22:31 Dose 1,000 mls @ ud .ROUTE .STK-MED ONE Dextrose Confirm 09/01/20 22:31 D5w 100ml Mini Bag 100 Ml Administered 09/01/20 22:32 Dose 100 mls @ ud IV .STK-MED ONE Levetiracetam Confirm 09/01/20 22:30 Keppra 500 Mg/5 Ml Administered 09/01/20 22:31 Dose 500 mg .ROUTE .STK-MED ONE Ondansetron HCl 4 mg 09/01/20 22:12 09/01/20 22:50 Zofran 4 Mg/2 Ml Vial IV 09/01/20 22:13 4 mg STAT ONE Administration Ondansetron HCl Confirm 09/01/20 22:30 Zofran 4 Mg/2 Ml Vial Administered 09/01/20 22:31 Dose 4 mg .ROUTE .STK-MED ONE Lab/Rad Data: Laboratory Result Diagrams 09/01/20 22:28 09/01/20 22:28 Laboratory Results 09/01/20 09/01/20 09/01/20 Range/Units 22:31 22:31 22:28 WBC (4.0-10.5) K/mm3 RBC (4.1-5.6) M/mm3 Hgb (12.5-18.0) gm/dl Hct (42-50) % MCV (78-100) fl MCH (26-32) pg MCHC (32-36) g/dl RDW (11.5-14.0) % Plt Count (150-450) K/mm3 MPV (7.5-11.0) fl Gran % (36.0-66.0) % Eos # (Auto) (0-0.5) Absolute Lymphs (auto) (1.0-4.6) Absolute Monos (auto) (0.0-1.3) Lymphocytes % (24.0-44.0) % Monocytes % (0.0-12.0) % Eosinophils % (0.00-5.0) % Basophils % (0.0-0.4) % Absolute Granulocytes (1.4-6.9) Basophils # (0-0.4) PT (9.4-12.5) SECONDS INR (0.8-3.0) Puncture Site pCO2 (35-45) mmHg pO2 (75-100) mmHg Base Excess (-2.0-2.0) O2 Saturation (94-100) g/dF ABG pH (7.35-7.45) ABG HCO3 (22-28) ABG O2 Sat (Measured) (95-100) % Shane Test A-a Gradient a/A Ratio Hemoglobin Carboxyhemoglobin (0.0-6.9) % THgb Methemoglobin (1.4-1.5) % Potassium (3.5-5.1) Temperature C POC O2 Flow Rate % Sodium (137-145) mmol/L Chloride (98-107) mmol/L Carbon Dioxide (22-30) mmol/L Anion Gap (5-15) MEQ/L BUN (9-20) mg/dL Creatinine (0.66-1.25) mg/dL Estimated GFR ML/MIN Glucose (74-106) mg/dL Lactic Acid (0.4-2.0) Calcium (8.4-10.2) mg/dL Magnesium 1.9 (1.6-2.3) mg/dL Total Bilirubin (0.2-1.3) mg/dL AST (17-59) U/L ALT (0-50) U/L Alkaline Phosphatase (38-126) U/L Serum Total Protein (6.3-8.2) g/dL Albumin (3.5-5.0) g/dL Urine Color YELLOW (YELLOW) Urine Appearance CLEAR (CLEAR) Urine pH 6.0 (5-6) Ur Specific [place] 1.013 (1.005-1.025) Urine Protein 100 (Negative) Urine Ketones NEGATIVE (NEGATIVE) Urine Blood NEGATIVE (0-5) Bruce/ul Urine Nitrite NEGATIVE (NEGATIVE) Urine Bilirubin NEGATIVE (NEGATIVE) Urine Urobilinogen NEGATIVE (0-1) mg/dL Ur Leukocyte Esterase NEGATIVE (NEGATIVE) Urine WBC (Auto) 3-5 (0-5) /HPF Urine RBC (Auto) 0-2 (0-2) /HPF U Hyaline Cast (Auto) 0-2 (0-2) /LPF U Epithel Cells (Auto) NONE (FEW) /HPF Urine Bacteria (Auto) NONE SEEN (NEGATIVE) /HPF Urine Sperm (Auto) PRESENT (NEGATIVE) /HPF Urine Culture Reflexed NO (NO) Urine Glucose NEGATIVE (NEGATIVE) mg/dL Salicylates (2-20) mg/dL Urine Opiates Level NEGATIVE (NEGATIVE) Ur Methadone NEGATIVE (NEGATIVE) Acetaminophen (10-30) ug/ml Urine Barbiturates NEGATIVE (NEGATIVE) Ur Phencyclidine (PCP) NEGATIVE (NEGATIVE) Urine Amphetamine POSITIVE (NEGATIVE) U Benzodiazepine Level NEGATIVE (NEGATIVE) Urine Cocaine NEGATIVE (NEGATIVE) Urine Marijuana (THC) POSITIVE (NEGATIVE) Ethyl Alcohol (0-10) mg/dL 09/01/20 09/01/20 09/01/20 Range/Units 22:28 22:28 22:28 WBC (4.0-10.5) K/mm3 RBC (4.1-5.6) M/mm3 Hgb (12.5-18.0) gm/dl Hct (42-50) % MCV (78-100) fl MCH (26-32) pg MCHC (32-36) g/dl RDW (11.5-14.0) % Plt Count (150-450) K/mm3 MPV (7.5-11.0) fl Gran % (36.0-66.0) % Eos # (Auto) (0-0.5) Absolute Lymphs (auto) (1.0-4.6) Absolute Monos (auto) (0.0-1.3) Lymphocytes % (24.0-44.0) % Monocytes % (0.0-12.0) % Eosinophils % (0.00-5.0) % Basophils % (0.0-0.4) % Absolute Granulocytes (1.4-6.9) Basophils # (0-0.4) PT 12.1 (9.4-12.5) SECONDS INR 1.03 (0.8-3.0) Puncture Site pCO2 (35-45) mmHg pO2 (75-100) mmHg Base Excess (-2.0-2.0) O2 Saturation (94-100) g/dF ABG pH (7.35-7.45) ABG HCO3 (22-28) ABG O2 Sat (Measured) (95-100) % Shane Test A-a Gradient a/A Ratio Hemoglobin Carboxyhemoglobin (0.0-6.9) % THgb Methemoglobin (1.4-1.5) % Potassium 4.2 (3.5-5.1) Temperature C POC O2 Flow Rate % Sodium 137 (137-145) mmol/L Chloride 105 (98-107) mmol/L Carbon Dioxide 24 (22-30) mmol/L Anion Gap 12.6 (5-15) MEQ/L BUN 12 (9-20) mg/dL Creatinine 0.87 (0.66-1.25) mg/dL Estimated GFR > 60.0 ML/MIN Glucose 76 (74-106) mg/dL Lactic Acid (0.4-2.0) Calcium 8.8 (8.4-10.2) mg/dL Magnesium (1.6-2.3) mg/dL Total Bilirubin < 0.10 L (0.2-1.3) mg/dL AST 21 (17-59) U/L ALT 15 (0-50) U/L Alkaline Phosphatase 72 (38-126) U/L Serum Total Protein 7.0 (6.3-8.2) g/dL Albumin 3.8 (3.5-5.0) g/dL Urine Color (YELLOW) Urine Appearance (CLEAR) Urine pH (5-6) Ur Specific [place] (1.005-1.025) Urine Protein (Negative) Urine Ketones (NEGATIVE) Urine Blood (0-5) Bruce/ul Urine Nitrite (NEGATIVE) Urine Bilirubin (NEGATIVE) Urine Urobilinogen (0-1) mg/dL Ur Leukocyte Esterase (NEGATIVE) Urine WBC (Auto) (0-5) /HPF Urine RBC (Auto) (0-2) /HPF U Hyaline Cast (Auto) (0-2) /LPF U Epithel Cells (Auto) (FEW) /HPF Urine Bacteria (Auto) (NEGATIVE) /HPF Urine Sperm (Auto) (NEGATIVE) /HPF Urine Culture Reflexed (NO) Urine Glucose (NEGATIVE) mg/dL Salicylates < 1.0 L (2-20) mg/dL Urine Opiates Level (NEGATIVE) Ur Methadone (NEGATIVE) Acetaminophen < 10 L (10-30) ug/ml Urine Barbiturates (NEGATIVE) Ur Phencyclidine (PCP) (NEGATIVE) Urine Amphetamine (NEGATIVE) U Benzodiazepine Level (NEGATIVE) Urine Cocaine (NEGATIVE) Urine Marijuana (THC) (NEGATIVE) Ethyl Alcohol < 10 (0-10) mg/dL 09/01/20 09/01/20 Range/Units 22:28 22:25 WBC 9.0 (4.0-10.5) K/mm3 RBC 4.60 (4.1-5.6) M/mm3 Hgb 12.3 L (12.5-18.0) gm/dl Hct 38.2 L (42-50) % MCV 83.0 (78-100) fl MCH 26.7 (26-32) pg MCHC 32.2 (32-36) g/dl RDW 14.5 H (11.5-14.0) % Plt Count 234 (150-450) K/mm3 MPV 11.0 (7.5-11.0) fl Gran % 82.9 H (36.0-66.0) % Eos # (Auto) 0.16 (0-0.5) Absolute Lymphs (auto) 0.81 L (1.0-4.6) Absolute Monos (auto) 0.55 (0.0-1.3) Lymphocytes % 9.0 L (24.0-44.0) % Monocytes % 6.1 (0.0-12.0) % Eosinophils % 1.8 (0.00-5.0) % Basophils % 0.2 (0.0-0.4) % Absolute Granulocytes 7.47 H (1.4-6.9) Basophils # 0.02 (0-0.4) PT (9.4-12.5) SECONDS INR (0.8-3.0) Puncture Site RIGHT RADIAL pCO2 34 L (35-45) mmHg pO2 88 (75-100) mmHg Base Excess 0.1 (-2.0-2.0) O2 Saturation 94.9 (94-100) g/dF ABG pH 7.45 (7.35-7.45) ABG HCO3 23.6 (22-28) ABG O2 Sat (Measured) 98.9 (95-100) % Shane Test YES A-a Gradient 98 a/A Ratio 0.47 Hemoglobin 12.6 Carboxyhemoglobin 3.0 (0.0-6.9) % THgb Methemoglobin 1.0 L (1.4-1.5) % Potassium 4.4 (3.5-5.1) Temperature 37.0 C POC O2 Flow Rate 32 % Sodium (137-145) mmol/L Chloride (98-107) mmol/L Carbon Dioxide (22-30) mmol/L Anion Gap (5-15) MEQ/L BUN (9-20) mg/dL Creatinine (0.66-1.25) mg/dL Estimated GFR ML/MIN Glucose (74-106) mg/dL Lactic Acid 1.9 (0.4-2.0) Calcium (8.4-10.2) mg/dL Magnesium (1.6-2.3) mg/dL Total Bilirubin (0.2-1.3) mg/dL AST (17-59) U/L ALT (0-50) U/L Alkaline Phosphatase (38-126) U/L Serum Total Protein (6.3-8.2) g/dL Albumin (3.5-5.0) g/dL Urine Color (YELLOW) Urine Appearance (CLEAR) Urine pH (5-6) Ur Specific [place] (1.005-1.025) Urine Protein (Negative) Urine Ketones (NEGATIVE) Urine Blood (0-5) Bruce/ul Urine Nitrite (NEGATIVE) Urine Bilirubin (NEGATIVE) Urine Urobilinogen (0-1) mg/dL Ur Leukocyte Esterase (NEGATIVE) Urine WBC (Auto) (0-5) /HPF Urine RBC (Auto) (0-2) /HPF U Hyaline Cast (Auto) (0-2) /LPF U Epithel Cells (Auto) (FEW) /HPF Urine Bacteria (Auto) (NEGATIVE) /HPF Urine Sperm (Auto) (NEGATIVE) /HPF Urine Culture Reflexed (NO) Urine Glucose (NEGATIVE) mg/dL Salicylates (2-20) mg/dL Urine Opiates Level (NEGATIVE) Ur Methadone (NEGATIVE) Acetaminophen (10-30) ug/ml Urine Barbiturates (NEGATIVE) Ur Phencyclidine (PCP) (NEGATIVE) Urine Amphetamine (NEGATIVE) U Benzodiazepine Level (NEGATIVE) Urine Cocaine (NEGATIVE) Urine Marijuana (THC) (NEGATIVE) Ethyl Alcohol (0-10) mg/dL - Progress Progress: improved Progress Note: 09/01/20 22:20 Patient was alert on presentation and gradually improved level of consciousness and currently awake alert and oriented. Moving all 4 extremities. Does admit t o smoking marijuana. Central line is placed in. 09/01/20 23:48 Broad work-up is done. EKG showed sinus tach with no acute ST elevation. Has negative troponins. Grossly unremarkable chemistries. CT head negative for any acute findings. Chest x-ray questionable right-sided aspiration pneumonia. Is given a dose of Zosyn. Patient is also given 1 g of Keppra for seizure. Did not have any seizure while in the ER. He is sleeping comfortably on reevaluation with maintaining oxygen saturation around 99% on 2 L and stable blood pressure and heart rate. I believe he had a seizure related to drug use. Blood cultures are obtained as he has a questionable history of IV drug use as well. Discussed with Dr. Barba and patient is being admitted. - Departure Clinical Impression: Seizures, Substance abuse Aspiration pneumonia Qualifiers: Aspiration pneumonia type: due to gastric secretions Laterality: right Lung location: unspecified part of lung Qualified Code(s): J69.0 - Pneumonitis due to inhalation of food and vomit Condition: Stable Critical Care Time: Yes Critical Care Time(excluding separately billable procedures): Critical 30-74 mins Referrals: TOYA BARBA [Primary Care Provider] -
[2020-09-01] MEDS ORDERED: Sodium Chloride 0.9% 1000 ML 1,000 ML ONE (22:30)
[2020-09-01] MEDS ORDERED: Keppra 500 MG/5 ML ONE (22:30)
[2020-09-01] MEDS ORDERED: Zofran 4 MG/2 ML VIAL ONE (22:30)
[2020-09-01] MEDS ORDERED: D5w 100ML Mini Bag 100 ML 100 ML IV ONE (22:31)
[2020-09-01 22:34] LABS: A-aADO2 98; ABG HEMOGLOBIN 12.6; ABG POTASSIUM 4.4 (3.5-5.1); ABG SITE RIGHT RADIAL; ALLEN TEST OK? YES; ARTERIAL BLD GAS O2 SATURATION 98.9 % (95-100); ARTERIAL BLOOD GAS BASE EXCESS 0.1 (-2.0-2.0); ARTERIAL BLOOD GAS FIO2 32 %; ARTERIAL BLOOD GAS PCO2 34 mmHg (35-45); ARTERIAL BLOOD GAS PO2 88 mmHg (75-100); ARTERIAL BLOOD GAS pH 7.45 (7.35-7.45); HCO3- 23.6 (22-28); HGB O2 SAT 94.9 g/dF (94-100); Lactic Acid 1.9 (0.4-2.0)
[2020-09-01 22:34] LABS: Absolute Neutrophil Ct (ANC) 7.47 (1.4-6.9); BASOPHIL % 0.2 % (0.0-0.4); Basophil (Absolute #) 0.02 (0-0.4); Eosinophil % 1.8 % (0.00-5.0); Eosinophil (Absolute #) 0.16 (0-0.5); Hematocrit 38.2 % (42-50); Hemoglobin 12.3 gm/dl (12.5-18.0); Lymphocyte (Absolute #) 0.81 (1.0-4.6); Mean Corpuscular Hemoglobin 26.7 pg (26-32); Mean Corpuscular Hgb Concent. 32.2 g/dl (32-36); Monocyte (Absolute #) 0.55 (0.0-1.3); Monocytes % 6.1 % (0.0-12.0); Neutrophil % 82.9 % (36.0-66.0); Platelet Count 234 K/mm3 (150-450); Red Cell Distribution Width 14.5 % (11.5-14.0)
[2020-09-01 22:40] LABS: Appearance CLEAR (CLEAR); Bacteria NONE SEEN /HPF (NEGATIVE); Bilirubin NEGATIVE (NEGATIVE); Blood NEGATIVE Ery/ul (0-5); Glucose NEGATIVE (NEGATIVE); Hyaline Casts 0-2 /LPF (0-2); Ketones NEGATIVE (NEGATIVE); Leukocyte Esterase NEGATIVE (NEGATIVE); Nitrite NEGATIVE (NEGATIVE); Protein,Urine Dip 100 (Negative); RBC 0-2 /HPF (0-2); Specific Gravity 1.013 (1.005-1.025); Sperm PRESENT /HPF (NEGATIVE); Urobilinogen NEGATIVE mg/dL (0-1)
[2020-09-01 22:42] LABS: INR 1.03 (0.8-3.0); PROTIME 12.1 SECONDS (9.4-12.5)
[2020-09-01] MEDS: Keppra 500 MG/5 ML*** 1,000 MG in D5w 100ML Mini Bag 100 ML 100 ML IV ONE ×2 (22:45→22:50)
[2020-09-01 22:47] LABS: ALBUMIN 3.8 g/dL (3.5-5.0); ALKALINE PHOSPHATASE 72 U/L (38-126); ANION GAP 12.6 MEQ/L (5-15); BILIRUBIN,TOTAL < 0.10 mg/dL (0.2-1.3); BLOOD UREA NITROGEN 12 mg/dL (9-20); CHLORIDE 105 mmol/L (98-107); Calcium 8.8 mg/dL (8.4-10.2); Carbon Dioxide 24 mmol/L (22-30); Creatinine 1 0.87 mg/dL (0.66-1.25); EST GLOMERULAR FILTRATION RATE > 60.0 ML/MIN; Glucose 76 mg/dL (74-106); Potassium 4.2 mmol/L (3.5-5.1); SGOT/AST 21 U/L (17-59); SGPT/ALT 15 U/L (0-50); SODIUM 137 mmol/L (137-145)
[2020-09-01 22:48] LABS: ACETAMINOPHEN < 10 ug/ml (10-30); ETHYL ALCOHOL < 10 mg/dL (0-10); SALICYLATE < 1.0 mg/dL (2-20)
[2020-09-01 22:53] LABS: Barbiturate,Urine NEGATIVE (NEGATIVE); Benzodiazepine,Urine NEGATIVE (NEGATIVE); Cocaine,Urine NEGATIVE (NEGATIVE); Methadone,Urine NEGATIVE (NEGATIVE); Opiate,Urine NEGATIVE (NEGATIVE); PCP,Urine NEGATIVE (NEGATIVE); THC,Urine POSITIVE (NEGATIVE)
[2020-09-01 23:12] LABS: Amphetamine,Urine POSITIVE (NEGATIVE)
[2020-09-01] MEDS ORDERED: Zosyn 3.375 GM Vial 3.375 GM in Sodium Chloride 100ML MINI-BAG PLUS 100 ML IV ONE (23:48)
[2020-09-02] MEDS ORDERED: Zosyn 3.375 GM Vial IV ONE (00:26)
[2020-09-02] MEDS ORDERED: Sodium Chloride 100ML MINI-BAG PLUS 100 ML IV ONE (00:27)
[2020-09-02] MEDS ORDERED: Sodium Chloride 0.9% W/ 20 mEq KCl/LITER 1,000 ML IV SCH (02:05)
[2020-09-02] MEDS ORDERED: DUONEB 0.5-3 MG/3 ml Neb IH PRN (02:05)
[2020-09-02] MEDS ORDERED: Zofran 4 MG/2 ML VIAL IV PRN (02:05)
[2020-09-02] MEDS ORDERED: Zosyn 3.375 GM Vial 3.375 GM in Sodium Chloride 100ML MINI-BAG PLUS 100 ML IV SCH (02:05)
[2020-09-02 05:16] LABS: Absolute Neutrophil Ct (ANC) 5.93 (1.4-6.9); BASOPHIL % 0.2 % (0.0-0.4); Basophil (Absolute #) 0.02 (0-0.4); Eosinophil % 2.8 % (0.00-5.0); Eosinophil (Absolute #) 0.24 (0-0.5); Hemoglobin 12.1 gm/dl (12.5-18.0); Lymphocyte (Absolute #) 1.66 (1.0-4.6); Lymphocytes % 19.3 % (24.0-44.0); Mean Cell Volume 84.3 fl (78-100); Mean Corpuscular Hemoglobin 26.8 pg (26-32); Mean Corpuscular Hgb Concent. 31.8 g/dl (32-36); Mean Platelet Volume 11.6 fl (7.5-11.0); Monocyte (Absolute #) 0.74 (0.0-1.3); Monocytes % 8.6 % (0.0-12.0); Neutrophil % 69.1 % (36.0-66.0); Platelet Count 237 K/mm3 (150-450); Red Blood Count 4.51 M/mm3 (4.1-5.6); Red Cell Distribution Width 14.7 % (11.5-14.0); White Blood Count 8.6 K/mm3 (4.0-10.5)
[2020-09-02 05:26] LABS: ALBUMIN 3.3 g/dL (3.5-5.0); ALKALINE PHOSPHATASE 73 U/L (38-126); ANION GAP 8.5 MEQ/L (5-15); BLOOD UREA NITROGEN 9 mg/dL (9-20); CHLORIDE 108 mmol/L (98-107); Calcium 8.4 mg/dL (8.4-10.2); Carbon Dioxide 25 mmol/L (22-30); Creatinine 1 0.81 mg/dL (0.66-1.25); EST GLOMERULAR FILTRATION RATE > 60.0 ML/MIN; Glucose 94 mg/dL (74-106); Potassium 4.1 mmol/L (3.5-5.1); SGOT/AST 21 U/L (17-59); SGPT/ALT 13 U/L (0-50); SODIUM 138 mmol/L (137-145); Total Protein 6.5 g/dL (6.3-8.2)
[2020-09-02 07:55] VITALS: BP 124/80; PULSE 56; O2SAT 97
--- NOTE | 2020-09-02 08:03 | PCM.HP ---
History of Present Illness - Chief Complaint Chief Complaint: SEIZURES, ASPIRATION PNUEMONIA SUBSTANCE ABUSE History of Present Illness: is a 35 year old male who presented to the ER yesterday with seizure, he states he has no prior history of seizure. he admits to marijuana use but d enies other drug use or alcohol but there is a suspicion for other substances. this morning he is awake and alert, he has had no seizures since admission. he insists he is leaving and signing out AMA. - Review of Systems Constitutional: No Fever, No Chills Respiratory: No Cough, No Short Of Breath Cardiac: No Chest Pain, No Edema, No Syncope Abdominal/Gastrointestinal: No Abdominal Pain, No Nausea, No Vomiting, No Diarrhea Neurological: Seizure Psychological: Drug Abuse, No Alcohol Abuse, No Hallucinations All Other Systems: Reviewed and Negative Medications & Allergies Home Medications: Home Medication List No Reportable Medications [No Reported Medications] 11/30/16 [History Confirmed 09/02/20] Allergies/Adverse Reactions: Allergies Allergy/AdvReac Type Severity Reaction Status Date / Time No Known Drug Allergies Allergy Verified 12/01/16 07:07 - Past Medical History Past Medical History: Yes Neurological History: Seizures ENT History: No Pertinent History Cardiac History: No Pertinent History Respiratory History: No Pertinent History Endocrine Medical History: No Pertinent History Musculoskelatal History: No Pertinent History GI Medical History: Hepatitis History: No Pertinent History Pyscho-Social History: No Pertinent History Male Reproductive Disorders: No Pertinent History Comment: pt states he was told he had hepatitis c but it is not active - Past Surgical History Past Surgical History: Yes Neuro Surgical History: No Pertinent History Cardiac History: No Pertinent History Respiratory Surgery: No Pertinent History GI Surgical History: Appendectomy Genitourinary Surgical Hx: No Pertinent History Musculskeletal Surgical Hx: Orthopedic Surgery Male Surgical History: No Pertinent History Other Surgical History: ABSCESS I AND 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 2015 L wrist I&D. - Social History Smoking Status: Current every day smoker How long have you smoked: unknown Exposure to second hand smoke: Yes Alcohol: Rarely Drug Use: marijuana, narcotics - Physical Exam Vital Signs: Vital Signs - 24 hr Temp Pulse Resp BP Pulse Ox 09/02/20 07:54 98.6 F 56 L 21 124/80 97 09/02/20 04:05 98 09/02/20 03:27 97.9 F 50 L 16 92/64 99 09/02/20 02:01 97.5 F 56 L 16 99/58 97 09/02/20 01:00 64 18 120/73 95 09/02/20 00:00 97.3 F 61 22 125/76 99 09/01/20 23:51 99 09/01/20 23:00 118 H 16 106/69 99 09/01/20 21:40 100.6 F 124 H 32 H 110/61 99 09/01/20 21:33 135 H 28 H 110/61 99 General Appearance: no apparent distress Neurologic Exam: alert, oriented x 3, cooperative, normal mood/affect, nml cerebellar function, nml station & gait, sensation nml, No motor deficits Respiratory Exam: normal breath sounds, lungs clear, No respiratory distress Cardiovascular Exam: regular rate/rhythm, normal heart sounds, normal peripheral pulses Gastrointestinal/Abdomen Exam: soft, normal bowel sounds, No tenderness, No mass Extremity Exam: normal inspection, normal range of motion, pelvis stable Skin Exam: normal color, warm, dry, No rash Results - Labs Lab/Micro Results: Lab Results-Last 24 Hours 09/01/20 09/01/20 09/01/20 Range/Units 22:25 22:28 22:28 WBC 9.0 (4.0-10.5) K/mm3 RBC 4.60 (4.1-5.6) M/mm3 Hgb 12.3 L (12.5-18.0) gm/dl Hct 38.2 L (42-50) % MCV 83.0 (78-100) fl MCH 26.7 (26-32) pg MCHC 32.2 (32-36) g/dl RDW 14.5 H (11.5-14.0) % Plt Count 234 (150-450) K/mm3 MPV 11.0 (7.5-11.0) fl Gran % 82.9 H (36.0-66.0) % Eos # (Auto) 0.16 (0-0.5) Absolute Lymphs (auto) 0.81 L (1.0-4.6) Absolute Monos (auto) 0.55 (0.0-1.3) Lymphocytes % 9.0 L (24.0-44.0) % Monocytes % 6.1 (0.0-12.0) % Eosinophils % 1.8 (0.00-5.0) % Basophils % 0.2 (0.0-0.4) % Absolute Granulocytes 7.47 H (1.4-6.9) Basophils # 0.02 (0-0.4) PT (9.4-12.5) SECONDS INR (0.8-3.0) Puncture Site RIGHT RADIAL pCO2 34 L (35-45) mmHg pO2 88 (75-100) mmHg Base Excess 0.1 (-2.0-2.0) O2 Saturation 94.9 (94-100) g/dF ABG pH 7.45 (7.35-7.45) ABG HCO3 23.6 (22-28) ABG O2 Sat (Measured) 98.9 (95-100) % Shane Test YES A-a Gradient 98 a/A Ratio 0.47 Hemoglobin 12.6 Carboxyhemoglobin 3.0 (0.0-6.9) % THgb Methemoglobin 1.0 L (1.4-1.5) % Potassium 4.4 4.2 (3.5-5.1) Temperature 37.0 C POC O2 Flow Rate 32 % Sodium 137 (137-145) mmol/L Chloride 105 (98-107) mmol/L Carbon Dioxide 24 (22-30) mmol/L Anion Gap 12.6 (5-15) MEQ/L BUN 12 (9-20) mg/dL Creatinine 0.87 (0.66-1.25) mg/dL Estimated GFR > 60.0 ML/MIN Glucose 76 (74-106) mg/dL Lactic Acid 1.9 (0.4-2.0) Calcium 8.8 (8.4-10.2) mg/dL Magnesium (1.6-2.3) mg/dL Total Bilirubin < 0.10 L (0.2-1.3) mg/dL AST 21 (17-59) U/L ALT 15 (0-50) U/L Alkaline Phosphatase 72 (38-126) U/L Serum Total Protein 7.0 (6.3-8.2) g/dL Albumin 3.8 (3.5-5.0) g/dL Urine Color (YELLOW) Urine Appearance (CLEAR) Urine pH (5-6) Ur Specific [place] (1.005-1.025) Urine Protein (Negative) Urine Ketones (NEGATIVE) Urine Blood (0-5) Bruce/ul Urine Nitrite (NEGATIVE) Urine Bilirubin (NEGATIVE) Urine Urobilinogen (0-1) mg/dL Ur Leukocyte Esterase (NEGATIVE) Urine WBC (Auto) (0-5) /HPF Urine RBC (Auto) (0-2) /HPF U Hyaline Cast (Auto) (0-2) /LPF U Epithel Cells (Auto) (FEW) /HPF Urine Bacteria (Auto) (NEGATIVE) /HPF Urine Sperm (Auto) (NEGATIVE) /HPF Urine Culture Reflexed (NO) Urine Glucose (NEGATIVE) mg/dL Salicylates (2-20) mg/dL Urine Opiates Level (NEGATIVE) Ur Methadone (NEGATIVE) Acetaminophen (10-30) ug/ml Urine Barbiturates (NEGATIVE) Ur Phencyclidine (PCP) (NEGATIVE) Urine Amphetamine (NEGATIVE) U Benzodiazepine Level (NEGATIVE) Urine Cocaine (NEGATIVE) Urine Marijuana (THC) (NEGATIVE) Ethyl Alcohol (0-10) mg/dL SARS-CoV-2 (PCR) (NEGATIVE) 09/01/20 09/01/20 09/01/20 Range/Units 22:28 22:28 22:28 WBC (4.0-10.5) K/mm3 RBC (4.1-5.6) M/mm3 Hgb (12.5-18.0) gm/dl Hct (42-50) % MCV (78-100) fl MCH (26-32) pg MCHC (32-36) g/dl RDW (11.5-14.0) % Plt Count (150-450) K/mm3 MPV (7.5-11.0) fl Gran % (36.0-66.0) % Eos # (Auto) (0-0.5) Absolute Lymphs (auto) (1.0-4.6) Absolute Monos (auto) (0.0-1.3) Lymphocytes % (24.0-44.0) % Monocytes % (0.0-12.0) % Eosinophils % (0.00-5.0) % Basophils % (0.0-0.4) % Absolute Granulocytes (1.4-6.9) Basophils # (0-0.4) PT 12.1 (9.4-12.5) SECONDS INR 1.03 (0.8-3.0) Puncture Site pCO2 (35-45) mmHg pO2 (75-100) mmHg Base Excess (-2.0-2.0) O2 Saturation (94-100) g/dF ABG pH (7.35-7.45) ABG HCO3 (22-28) ABG O2 Sat (Measured) (95-100) % Shane Test A-a Gradient a/A Ratio Hemoglobin Carboxyhemoglobin (0.0-6.9) % THgb Methemoglobin (1.4-1.5) % Potassium (3.5-5.1) Temperature C POC O2 Flow Rate % Sodium (137-145) mmol/L Chloride (98-107) mmol/L Carbon Dioxide (22-30) mmol/L Anion Gap (5-15) MEQ/L BUN (9-20) mg/dL Creatinine (0.66-1.25) mg/dL Estimated GFR ML/MIN Glucose (74-106) mg/dL Lactic Acid (0.4-2.0) Calcium (8.4-10.2) mg/dL Magnesium 1.9 (1.6-2.3) mg/dL Total Bilirubin (0.2-1.3) mg/dL AST (17-59) U/L ALT (0-50) U/L Alkaline Phosphatase (38-126) U/L Serum Total Protein (6.3-8.2) g/dL Albumin (3.5-5.0) g/dL Urine Color (YELLOW) Urine Appearance (CLEAR) Urine pH (5-6) Ur Specific [place] (1.005-1.025) Urine Protein (Negative) Urine Ketones (NEGATIVE) Urine Blood (0-5) Bruce/ul Urine Nitrite (NEGATIVE) Urine Bilirubin (NEGATIVE) Urine Urobilinogen (0-1) mg/dL Ur Leukocyte Esterase (NEGATIVE) Urine WBC (Auto) (0-5) /HPF Urine RBC (Auto) (0-2) /HPF U Hyaline Cast (Auto) (0-2) /LPF U Epithel Cells (Auto) (FEW) /HPF Urine Bacteria (Auto) (NEGATIVE) /HPF Urine Sperm (Auto) (NEGATIVE) /HPF Urine Culture Reflexed (NO) Urine Glucose (NEGATIVE) mg/dL Salicylates < 1.0 L (2-20) mg/dL Urine Opiates Level (NEGATIVE) Ur Methadone (NEGATIVE) Acetaminophen < 10 L (10-30) ug/ml Urine Barbiturates (NEGATIVE) Ur Phencyclidine (PCP) (NEGATIVE) Urine Amphetamine (NEGATIVE) U Benzodiazepine Level (NEGATIVE) Urine Cocaine (NEGATIVE) Urine Marijuana (THC) (NEGATIVE) Ethyl Alcohol < 10 (0-10) mg/dL SARS-CoV-2 (PCR) (NEGATIVE) 09/01/20 09/01/20 09/02/20 Range/Units 22:31 22:31 00:40 WBC (4.0-10.5) K/mm3 RBC (4.1-5.6) M/mm3 Hgb (12.5-18.0) gm/dl Hct (42-50) % MCV (78-100) fl MCH (26-32) pg MCHC (32-36) g/dl RDW (11.5-14.0) % Plt Count (150-450) K/mm3 MPV (7.5-11.0) fl Gran % (36.0-66.0) % Eos # (Auto) (0-0.5) Absolute Lymphs (auto) (1.0-4.6) Absolute Monos (auto) (0.0-1.3) Lymphocytes % (24.0-44.0) % Monocytes % (0.0-12.0) % Eosinophils % (0.00-5.0) % Basophils % (0.0-0.4) % Absolute Granulocytes (1.4-6.9) Basophils # (0-0.4) PT (9.4-12.5) SECONDS INR (0.8-3.0) Puncture Site pCO2 (35-45) mmHg pO2 (75-100) mmHg Base Excess (-2.0-2.0) O2 Saturation (94-100) g/dF ABG pH (7.35-7.45) ABG HCO3 (22-28) ABG O2 Sat (Measured) (95-100) % Shane Test A-a Gradient a/A Ratio Hemoglobin Carboxyhemoglobin (0.0-6.9) % THgb Methemoglobin (1.4-1.5) % Potassium (3.5-5.1) Temperature C POC O2 Flow Rate % Sodium (137-145) mmol/L Chloride (98-107) mmol/L Carbon Dioxide (22-30) mmol/L Anion Gap (5-15) MEQ/L BUN (9-20) mg/dL Creatinine (0.66-1.25) mg/dL Estimated GFR ML/MIN Glucose (74-106) mg/dL Lactic Acid (0.4-2.0) Calcium (8.4-10.2) mg/dL Magnesium (1.6-2.3) mg/dL Total Bilirubin (0.2-1.3) mg/dL AST (17-59) U/L ALT (0-50) U/L Alkaline Phosphatase (38-126) U/L Serum Total Protein (6.3-8.2) g/dL Albumin (3.5-5.0) g/dL Urine Color YELLOW (YELLOW) Urine Appearance CLEAR (CLEAR) Urine pH 6.0 (5-6) Ur Specific [place] 1.013 (1.005-1.025) Urine Protein 100 (Negative) Urine Ketones NEGATIVE (NEGATIVE) Urine Blood NEGATIVE (0-5) Bruce/ul Urine Nitrite NEGATIVE (NEGATIVE) Urine Bilirubin NEGATIVE (NEGATIVE) Urine Urobilinogen NEGATIVE (0-1) mg/dL Ur Leukocyte Esterase NEGATIVE (NEGATIVE) Urine WBC (Auto) 3-5 (0-5) /HPF Urine RBC (Auto) 0-2 (0-2) /HPF U Hyaline Cast (Auto) 0-2 (0-2) /LPF U Epithel Cells (Auto) NONE (FEW) /HPF Urine Bacteria (Auto) NONE SEEN (NEGATIVE) /HPF Urine Sperm (Auto) PRESENT (NEGATIVE) /HPF Urine Culture Reflexed NO (NO) Urine Glucose NEGATIVE (NEGATIVE) mg/dL Salicylates (2-20) mg/dL Urine Opiates Level NEGATIVE (NEGATIVE) Ur Methadone NEGATIVE (NEGATIVE) Acetaminophen (10-30) ug/ml Urine Barbiturates NEGATIVE (NEGATIVE) Ur Phencyclidine (PCP) NEGATIVE (NEGATIVE) Urine Amphetamine POSITIVE (NEGATIVE) U Benzodiazepine Level NEGATIVE (NEGATIVE) Urine Cocaine NEGATIVE (NEGATIVE) Urine Marijuana (THC) POSITIVE (NEGATIVE) Ethyl Alcohol (0-10) mg/dL SARS-CoV-2 (PCR) NEGATIVE (NEGATIVE) 09/02/20 09/02/20 Range/Units 04:53 04:53 WBC 8.6 (4.0-10.5) K/mm3 RBC 4.51 (4.1-5.6) M/mm3 Hgb 12.1 L (12.5-18.0) gm/dl Hct 38.0 L (42-50) % MCV 84.3 (78-100) fl MCH 26.8 (26-32) pg MCHC 31.8 L (32-36) g/dl RDW 14.7 H (11.5-14.0) % Plt Count 237 (150-450) K/mm3 MPV 11.6 H (7.5-11.0) fl Gran % 69.1 H (36.0-66.0) % Eos # (Auto) 0.24 (0-0.5) Absolute Lymphs (auto) 1.66 (1.0-4.6) Absolute Monos (auto) 0.74 (0.0-1.3) Lymphocytes % 19.3 L (24.0-44.0) % Monocytes % 8.6 (0.0-12.0) % Eosinophils % 2.8 (0.00-5.0) % Basophils % 0.2 (0.0-0.4) % Absolute Granulocytes 5.93 (1.4-6.9) Basophils # 0.02 (0-0.4) PT (9.4-12.5) SECONDS INR (0.8-3.0) Puncture Site pCO2 (35-45) mmHg pO2 (75-100) mmHg Base Excess (-2.0-2.0) O2 Saturation (94-100) g/dF ABG pH (7.35-7.45) ABG HCO3 (22-28) ABG O2 Sat (Measured) (95-100) % Shane Test A-a Gradient a/A Ratio Hemoglobin Carboxyhemoglobin (0.0-6.9) % THgb Methemoglobin (1.4-1.5) % Potassium 4.1 (3.5-5.1) Temperature C POC O2 Flow Rate % Sodium 138 (137-145) mmol/L Chloride 108 H (98-107) mmol/L Carbon Dioxide 25 (22-30) mmol/L Anion Gap 8.5 (5-15) MEQ/L BUN 9 (9-20) mg/dL Creatinine 0.81 (0.66-1.25) mg/dL Estimated GFR > 60.0 ML/MIN Glucose 94 (74-106) mg/dL Lactic Acid (0.4-2.0) Calcium 8.4 (8.4-10.2) mg/dL Magnesium (1.6-2.3) mg/dL Total Bilirubin 0.10 L (0.2-1.3) mg/dL AST 21 (17-59) U/L ALT 13 (0-50) U/L Alkaline Phosphatase 73 (38-126) U/L Serum Total Protein 6.5 (6.3-8.2) g/dL Albumin 3.3 L (3.5-5.0) g/dL Urine Color (YELLOW) Urine Appearance (CLEAR) Urine pH (5-6) Ur Specific [place] (1.005-1.025) Urine Protein (Negative) Urine Ketones (NEGATIVE) Urine Blood (0-5) Bruce/ul Urine Nitrite (NEGATIVE) Urine Bilirubin (NEGATIVE) Urine Urobilinogen (0-1) mg/dL Ur Leukocyte Esterase (NEGATIVE) Urine WBC (Auto) (0-5) /HPF Urine RBC (Auto) (0-2) /HPF U Hyaline Cast (Auto) (0-2) /LPF U Epithel Cells (Auto) (FEW) /HPF Urine Bacteria (Auto) (NEGATIVE) /HPF Urine Sperm (Auto) (NEGATIVE) /HPF Urine Culture Reflexed (NO) Urine Glucose (NEGATIVE) mg/dL Salicylates (2-20) mg/dL Urine Opiates Level (NEGATIVE) Ur Methadone (NEGATIVE) Acetaminophen (10-30) ug/ml Urine Barbiturates (NEGATIVE) Ur Phencyclidine (PCP) (NEGATIVE) Urine Amphetamine (NEGATIVE) U Benzodiazepine Level (NEGATIVE) Urine Cocaine (NEGATIVE) Urine Marijuana (THC) (NEGATIVE) Ethyl Alcohol (0-10) mg/dL SARS-CoV-2 (PCR) (NEGATIVE) Accuchecks Date 09/02/20 - Radiology Impressions Radiology Exams & Impressions: Radiology Procedures Category Date Time Status CHEST 1 VIEW (PORTABLE) Stat Exams 09/01/20 22:45 Taken HEAD WITHOUT CONTRAST [CT] Stat Exams 09/01/20 22:13 Taken - Other Procedures and Tests Respiratory Therapy 09/02/20 02:05 Oxygen Nasal Cannula 2 lpm Assessment/Plan (1) Seizures Current Visit: Yes Status: Acute Assessment & Plan: likely substance related, advised should stay for further testing and treatment. patient understands risk of further seizures and , he is able to comprehend the potential consequences of his decision making and is choosing to sign out against medical advice and refuses any treatment at this time. gave order to remove central line to nursing and he will leave AMA Code(s): R56.9 - UNSPECIFIED CONVULSIONS (2) Substance abuse Current Visit: Yes Status: Acute Code(s): F19.10 - OTHER PSYCHOACTIVE SUBSTANCE ABUSE, UNCOMPLICATED
--- NOTE | 2020-09-02 08:50 | XRAY ---
Indication: Seizure. Possible overdose. Comparison: November 10, 2016. Portable chest demonstrates new left lower lung subsegmental atelectasis/scarring. Remaining heart, right lung, and bony thorax normal.
--- NOTE | 2020-09-02 08:52 | XRAY ---
Indication: Seizure. Multiple contiguous axial images obtained through the head without contrast. Comparison: November 10, 2016. Normal appearing brain and ventricles. Bone windows reveal new finding for old left orbit lateral wall fracture. Visualized paranasal sinuses and mastoid air cells are clear. Impression: 1. Old left orbit lateral wall fracture. 2. Otherwise continued negative CT head without contrast exam. Comment: Preliminary interpretation was made by [facility]. No critical discrepancy.
[2020-09-02] MEDS ORDERED: PROTONIX 40 MG IV IV SCH (10:00)
== END 2020-09-02 08:10 | disposition left against medical advice (07) ==
LOC: ED 21:31 → ICU 09-02 01:57
PROVIDERS: ADMIT Family Medicine; ATTEND Family Medicine
DX: R56.9 Unspecified convulsions (principal); F19.10 Other psychoactive substance abuse, uncomplicated; Z20.828 Contact with and (suspected) exposure to other viral communicable diseases
CPT/HCPCS: 36415; 36600; 70450; 71045; 80053; 80307; 81001; 82375; 82803; 83605; 83735; 85025; 85610; 87040; 93005; 93041; 93268; 94799; 96365; 96374; 99285; 99291; G0378; G0480; U0003; J1953; J2405